=== PATIENT | male | born 1965 | race Caucasian/White ===

== ENCOUNTER 2017-06-25 10:51 | Emergency (ER) | END 2017-06-25 12:35 | disposition home or self-care (01) ==

== ENCOUNTER 2018-01-04 22:18 | Emergency (ER) | END 2018-01-05 02:33 | disposition home or self-care (01) ==

== ENCOUNTER 2018-01-31 21:09 | Emergency (ER) | END 2018-02-01 00:01 | disposition home or self-care (01) ==

== ENCOUNTER 2018-02-02 00:08 | Emergency (ER) | END 2018-02-02 05:56 | disposition home or self-care (01) ==